=== PATIENT | female | born 1930 | race Caucasian/White ===

== ENCOUNTER 2017-09-02 12:05 | Inpatient (IN) ==
--- NOTE | 2017-09-02 12:24 | Emergency Department Note ---
ED Disposition Clinical Impression: Blood loss anemia Urinary tract infection Qualifiers: Urinary tract infection type: site unspecified Hematuria presence: without hematuria Qualified Code(s): N39.0 - Urinary tract infection, site not specified Disposition: Still a Patient Condition on Discharge: Serious - Critical Care Critical Care Time: No Attestation: On , the high probability of a clinically significant, sudden or life threatening deterioration of the following system(s) required my full and direct attention, intervention and personal management. The time I documented below is in addition to time spent performing reported procedures but includes the following listed in this critical care notation. Medical Decision Making - Shaun Inquiry Pt receiving controlled substance: No Vital Signs: 09/02/17 12:10 09/02/17 12:39 09/02/17 13:01 Temperature 99.3 F Temperature Source Oral Pulse Rate [Right Brachial] 89 72 70 Respiratory Rate 20 18 18 Blood Pressure [Right Arm] 115/67 105/58 108/45 Blood Pressure Mean [Right Arm] 83 73 66 Blood Pressure Source [Right Arm] Automatic Cuff Automatic Cuff Automatic Cuff Blood Pressure Position [Right Arm] Supine Sitting Supine 02 Sat by Pulse Oximetry 97 99 99 Oxygen Delivery Method Nasal Cannula Nasal Cannula Nasal Cannula Oxygen Flow Rate (LPM) 3 - Lab Data Lab Results 09/02/17 12:25: WBC 15.9 H, RBC 3.03 L, Hgb 6.5 L*, Hct 24.5 L, MCV 80.7 L, MCH 21.5 L, MCHC 26.6 L, RDW 16.8, Plt Count 293, MPV 10.0, Neut % (Auto) 87.3 H, Lymph % (Auto) 7.5 L, [place] % (Auto) 5.0, Eos % (Auto) 0.0 L, Baso % (Auto) 0.2, Neut # (Auto) 13.8 H, Lymph # (Auto) 1.2, [place] # (Auto) 0.8, Eos # (Auto) 0.0, Baso # (Auto) 0.0, Total Counted 100, Neutrophils % (Manual) 93 H, Lymphocytes % (Manual) 4 L, Monocytes % (Manual) 3, Platelet Estimate Normal, Hypochromasia 2+, Stomatocytes 1+ 09/02/17 12:25: Sodium 136, Potassium 5.4 H, Chloride 101, Carbon Dioxide 29, Anion Gap 11.4, BUN 30 H, Creatinine 1.81 H, Estimated Creat Clear 31, Estimated GFR 27 L, Est GFR ( Amer) 32 L, Glucose 155 H, Calcium 7.9 L, Total Bilirubin 1.4 H, AST 80 H, ALT 60, Alkaline Phosphatase 258 H, Total Creatine Kinase 70, CK-MB (CK-2) 0.8, CK-MB (CK-2) Rel Index 1.1, Troponin I < 0.02, Total Protein 6.1 L, Albumin 2.3 L, Globulin 3.8 H, Albumin/Globulin Ratio 0.6 L 09/02/17 12:30: TSH 0.90, Free T4 Index 2.3 L, Thyroxine (T4) 6.1, T3 Uptake 37 09/02/17 13:15: Urine Color Yellow, Urine Appearance Sl cloudy, Urine pH 5.5, Ur Specific [place] <= 1.005, Urine Protein Negative, Urine Glucose (UA) Negative, Urine Ketones Negative, Urine Blood Negative, Urine Nitrate Positive, Urine Bilirubin Negative, Urine Urobilinogen 0.2, Ur Leukocyte Esterase 1+ A Result diagrams: 09/02/17 12:25 09/02/17 12:25 Orders (Tests/Meds): ORDERS Category Date Time Status XR chest portable Stat Exams 09/02/17 12:14 Taken Lactic Acid Stat Lab 09/02/17 12:38 Ordered Urinalysis-Acute [Urinalysis and Microscopic] Stat Lab 09/02/17 13:15 Results Urine Culture Stat Micro 09/02/17 13:15 Received ECG Request by /Lynette Stat Y 09/02/17 12:14 Ordered - Radiology Data #1 Image(s): Chest Image Reviewed: Yes I reviewed the patient's radiology image cardiomegaly - ECG Data Tracing #1 EKG interpreted by David Jeffries MD: Rhythm: Electronic atrial pacemaker Rate: 70 [place]: normal Ectopy: none Conduction: normal ST Segment Changes: Nonspecific T Wave Changes: none Q Waves: none No evidence of acute ischemia or injury - Physician Consults Physician Consulted: Laly Time: 13:06 Reason -: Admission Comment/Response: Agrees to admit the patient to the hospital. We discussed the patient's clinical information, including history, exam, laboratory and radiology results and ED course. Per hospital procedure, I will write temporary bridge inpatient orders on the patient. Specific orders requested by the admitting physician: Transfuse packed red cells Medical Decision Narrative: 1242: [facility] records reviewed. Hemoglobin 7.0 on 08/26/17. 7.1 on . 7.9 on 07/09/17. 10.6 on 06/12/17. General Adult HPI - General Chief complaint: Weakness Stated complaint: WEAKNESS AND LOW HGB Time Seen by Provider: 09/02/17 12:24 Mode of Arrival: EMS Limitations: No Limitations Description of Symptoms (Recalled from ER Triage Doc. by RN): C/O WEAKNESS AND LOW HGB PER [facility] STA[facility]. PATIENT STATES SHE IS UNABLE TO HOLD HER HEAD UP. WEAKNESS, BODY ACHES, STATES HE HAD LEFT SIDED CHEST PAIN AT 3 AM THIS AM BUT NO LONGER HAVING THAT PAIN. ALSO C/O SOB - History of Present Illness HPI narrative: Brought in by ambulance from nursing. Generalized weakness for 2 days. Dates could not even hold it up. Dyspnea. Patient states that she had some left shoulder pain earlier when they would prop her up in a certain way, but that is gone. She also had some burning abdominal pain which resolved. There is a report from the assisted that the patient recently refused a transfusion for anemia for a hemoglobin of 7. The patient's daughter is here and she states that the patient was here in the emergency room a few weeks ago and was having blood loss at that time, but did not meet criteria for transfusion then. She says she was called by the assisted yesterday and was told the patient was very weak, but there are no mention of a low blood count or need for transfusion. Review of records shows that she was seen her on 07/09/17 in the emergency department. She was having rectal bleeding at that time. She had a CT scan of her abdomen and pelvis which showed extensive diverticulosis without diverticulitis, cholelithiasis and a diaphragmatic hernia. Hemoglobin 9.2 and stool occult blood was positive. Daughter thinks that she received iron transfusions after return to the assisted at that time. Daughter states Dr. Ruffin takes care of the patient when she is admitted. - Related Data Home Medications Medication Instructions Recorded Confirmed acetaminophen 500 mg capsule 500 mg PO Q6H PRN 03/19/17 09/02/17 aspirin 81 mg tablet,delayed 81 mg PO ONCE 03/19/17 09/02/17 release bisoprolol fumarate 5 mg tablet 5 mg PO DAILY 10 Days #10 03/19/17 09/02/17 cholecalciferol (vitamin D3) 1,000 1,000 unit PO ONCE 03/19/17 09/02/17 unit capsule fluticasone 50 mcg/actuation nasal 1 spray INTRANASAL DAILY 30 Days 03/19/17 spray,suspension #16 furosemide 20 mg tablet 20 mg PO DAILY 10 Days #4 03/19/17 09/02/17 insulin aspart U-100 100 unit/mL 1 unit SUB-Q DAILY 8 Days #3 03/19/17 09/02/17 subcutaneous pen insulin detemir (U-100) 100 12 unit SUB-Q DAILY 10 Days #6 03/19/17 09/02/17 unit/mL (3 mL) subcutaneous pen levothyroxine 50 mcg tablet 50 mcg PO DAILY 10 Days #10 03/19/17 09/02/17 menthol 0.44 %-zinc oxide 20.6 % 1 applic TOPICAL BID 03/19/17 09/02/17 topical ointment metformin 1,000 mg tablet 1,000 mg PO BID 10 Days #20 03/19/17 09/02/17 omeprazole 20 mg capsule,delayed 20 mg PO DAILY 10 Days #10 03/19/17 09/02/17 release pregabalin 75 mg capsule 75 mg PO DAILY 10 Days #20 03/19/17 09/02/17 sennosides 25 mg tablet 25 mg PO QHS 03/19/17 09/02/17 sitagliptin 50 mg tablet 50 mg PO DAILY 10 Days #10 03/19/17 09/02/17 spironolactone 25 mg tablet 25 mg PO DAILY 10 Days #10 03/19/17 09/02/17 Bisacodyl [Bisacodyl 10mg Supp] 10 mg RC DAILYP PRN 09/02/17 09/02/17 Loratadine [Claritin 10mg Tablet] 10 mg PO DAILY 09/02/17 09/02/17 Menthol/Zinc Oxide [Risamine 113 gm TP Q8 PRN 09/02/17 09/02/17 Ointment] Polyethylene Glycol 3350 [Miralax 17 gm PO DAILY 09/02/17 09/02/17 17gm Packet] Allergies Allergy/AdvReac Type Severity Reaction Status Date / Time meperidine [MEPERIDINE] Allergy Mild Verified 03/19/17 11:03 morphine [MORPHINE] Allergy Mild Verified 03/19/17 11:03 promethazine [PROMETHAZINE] Allergy Mild Verified 03/19/17 11:03 [facility] History I have reviewed the patient's past medical history: Yes Medical History: Reports:: Anxiety, Congestive Heart Failure, Cerebrovascular Accident, Diabetes Mellitus Type 2, Hyperlipidemia, Hypertension, Internal Pacemaker Denies:: Diabetes Mellitus Type 1 Other Medical History: Reports: Cataracts, Hypothyroidism Other Surgeries: Yes: Colonoscopy, Hysterectomy-Partial, Pacemaker Amputation: No Comment: EGD, kidney - Social History Smoking Status: Never smoker Alcohol Intake: never Substance Use Type: denies use - Psychiatric History Expresses thoughts of harming self/others: None Suicide Plan Description: No Plan Pschychiatric History:: Reports:: Anxiety Family Hx:: Hypertension Comment: TB ROS Obtained: Yes All systems reviewed & no additional complaints - Constitutional Constitutional: Reports fatigue, Reports poor appetite, Reports lethargy, Reports weakness - Cardiovascular Cardiovascular: Reports chest pain - Respiratory Respiratory: No cough, Yes dyspnea - Gastrointestinal Gastrointestingal: Reports: abdominal pain. Denies: diarrhea, vomiting Physical Exam - General General appearance: alert, in no apparent distress - Head Head exam: atraumatic, normocephalic, normal inspection - Eye Eye exam: Present: normal appearance, PERRL, EOMI - ENT ENT exam: Present: normal exam, normal oropharynx, mucous membranes moist, TM's normal bilaterally, normal external ear exam - Neck Neck exam: Present: normal inspection, full ROM, trachea midline. Absent: meningismus, lymphadenopathy - Chest Chest inspection: Present: normal inspection, symmetric chest wall rise. Absent : tenderness - Respiratory Respiratory exam: Present: normal lung sounds bilaterally. Absent: respiratory distress - Cardiovascular Cardiovascular exam: Present: regular rate, normal rhythm. Absent: JVD - Abdominal Exam Abdominal exam: Present: soft, normal bowel sounds. Absent: distention, tenderness, guarding - Extremities Exam Extremities exam: Present: normal inspection, full ROM, normal capillary refill. Absent: calf tenderness - Neurological Exam Neurological exam: Present: alert, oriented X3 - Psychiatric Psychiatric exam: Present: normal affect, normal mood - Skin Skin exam: Present: warm, dry, intact, pallor
[2017-09-02 12:41] LABS: Basophils % 0.2 % (0.1-2.0); Hematocrit 24.5 % (37.0-47.0); Lymphocytes # 1.2 K/mm3 (0.7-4.5); Lymphocytes % 7.5 K/mm3 (10-50); Mean Corpuscular HGB Conc 26.6 g/dL (31.8-35.4); Mean Corpuscular Hemoglobin 21.5 pg (27.0-31.2); Mean Corpuscular Volume 80.7 fl (81-99); Monocytes # 0.8 K/mm3 (0.1-1.0); Neutrophils # 13.8 K/mm3 (1.8-7.8); Neutrophils % 87.3 % (37.0-80.0); Platelet Count 293 K/mm3 (142-424); Red Blood Count 3.03 M/mm3 (4.20-5.40); Red Cell Distribution Width 16.8 % (11.5-17.5); White Blood Count 15.9 K/mm3 (4.8-10.8)
[2017-09-02 12:43] LABS: Hemoglobin 6.5 g/dL (12.2-16.2)
[2017-09-02 13:03] LABS: Alanine Aminotransferase 60 U/L (12-78); Albumin Level 2.3 gm/dL (3.4-5.0); Albumin/Globulin Ratio 0.6 (1.1-1.8); Alkaline Phosphatase 258 U/L (46-116); Anion Gap 11.4 mEq/L (5-15); Aspartate Amino Transferase 80 U/L (15-37); Bilirubin,Total 1.4 mg/dL (0.2-1.0); Blood Urea Nitrogen 30 mg/dL (7-18); Calcium 7.9 mg/dL (8.5-10.1); Carbon Dioxide 29 mmol/L (21.0-32.0); Chloride 101 mmol/L (98-107); Creatine Kinase 70 U/L (26-192); Globulin 3.8 gm/dl (1.3-3.2); Glucose 155 mg/dL (74-106); Potassium 5.4 mmoL/L (3.5-5.1); Sodium 136 mmol/L (136-145); Total Protein,Serum 6.1 gm/dL (6.4-8.2)
[2017-09-02 13:09] LABS: Free Thyroxine Index 2.3 ug/dL (5.93-13.13); T4 (Thyroxine) 6.1 ug/dl (4.7-13.3); Thyroid Stimulating Hormone 0.9 uIU/ml (0.358-3.740)
[2017-09-02 13:12] LABS: Lymphocytes % 4 % (10-50); Monocytes % 3 % (2-9); Neutrophils % 93 % (42-76); Total Cells Counted 100
[2017-09-02 13:13] LABS: Hypochromasia 2+
[2017-09-02 13:14] LABS: Stomatocytes 1+
[2017-09-02 13:27] LABS: Appearance,Urine SL CLOUDY (Clear); Bilirubin,Urine Negative (Negative); Blood, Urine Negative (Negative); Color,Urine YELLOW (Yellow); Glucose,Urine (UA) Negative (Negative); Ketones,Urine Negative (Negative); Leukocyte Esterase,Urine 1+ (Negative); Microscopic, Urine URINE MICROSCOPIC (MICROSCOPIC); PH,Urine 5.5 (5.0-8.5); Protein,Urine Negative (Negative); Specific Gravity, Urine <= 1.005 (1.005-1.030); Urobilinogen,Urine 0.2 EU/dl (0.2)
[2017-09-02 13:42] LABS: Bacteria,Urine 3+ /lpf; RBC,Urine Occasional #/hpf (0-3)
[2017-09-02 22:53] LABS: Hematocrit 33.9 % (37.0-47.0)
[2017-09-03 07:33] LABS: Basophils % 0.2 % (0.1-2.0); Eosinophils % 0.4 % (0.1-12.0); Hematocrit 32.7 % (37.0-47.0); Hemoglobin 9.5 g/dL (12.2-16.2); Lymphocytes # 0.7 K/mm3 (0.7-4.5); Lymphocytes % 6.6 K/mm3 (10-50); Mean Corpuscular HGB Conc 29.2 g/dL (31.8-35.4); Mean Corpuscular Volume 82.3 fl (81-99); Mean Platelet Volume 9.6 fl (7.4-10.4); Monocytes # 0.5 K/mm3 (0.1-1.0); Monocytes % 4.5 % (1.7-9.3); Neutrophils # 9.2 K/mm3 (1.8-7.8); Neutrophils % 88.4 % (37.0-80.0); Platelet Count 253 K/mm3 (142-424); Red Blood Count 3.97 M/mm3 (4.20-5.40); Red Cell Distribution Width 16.2 % (11.5-17.5); White Blood Count 10.4 K/mm3 (4.8-10.8)
--- NOTE | 2017-09-03 07:35 | Pharmacy Consult Notes ---
[facility] Pharmacy VTE Monitoring - Patient Demographics Admission date: 09/02/17 Report Date: 09/03/17 Time: 07:35 Allergies/Adverse Reactions: Patient Allergies meperidine [MEPERIDINE] Allergy (Mild, Verified 03/19/17 11:03) morphine [MORPHINE] Allergy (Mild, Verified 03/19/17 11:03) promethazine [PROMETHAZINE] Allergy (Mild, Verified 03/19/17 11:03) Height: 1.6 m Weight: 85.757 kg Patient Problems: Current Active Problems Blood loss anemia (Acute) Urinary tract infection (Acute) - VTE Risk Labs: VTE Related Lab Results Hgb 10.0 g/dL (12.2-16.2) L D 09/02/17 21:30 Hct 33.9 % (37.0-47.0) L 09/02/17 21:30 Plt Count 293 K/mm3 (142-424) 09/02/17 12:25 BUN 30 mg/dL (7-18) H 09/02/17 12:25 Creatinine 1.81 mg/dL (0.55-1.02) H 09/02/17 12:25 Estimated Creat Clear 31 mL/min (0-300) 09/02/17 12:25 VTE Score: 6 VTE Risk Level: Moderate Risk - Prophylaxis VTE Prophylaxis Ordered?: Yes Types of VTE Prophylaxis: TEDS Knee High Location of Applied Device: Bilateral Lower Extremeties - VTE Diagnosis Confirmed Treatment or plan recommended: Continue Current Treatment
[2017-09-03 07:42] LABS: Anion Gap 7.9 mEq/L (5-15); Calcium 7.8 mg/dL (8.5-10.1); Potassium 4.9 mmoL/L (3.5-5.1)
[2017-09-03 07:46] VITALS: BP 136/82
--- NOTE | 2017-09-03 08:24 | H&P/Discharge Summary ---
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 She maintains a DNR status at the fci, and essentially is monitored for blood counts and occasionally gets transfusion for palliative/comfort care measures. Over the past couple days she has been increasingly dyspneic, increasingly afflicted with fatigue, blood counts revealed significantly low hemoglobin and she was brought to the emergency department, where she was admitted for overnight blood transfusion. [facility] History I have reviewed the patient's past medical history: Yes Medical History: Reports:: Anxiety, Congestive Heart Failure, Cerebrovascular Accident, Diabetes Mellitus Type 2, Hyperlipidemia, Hypertension, Internal Pacemaker Denies:: Cancer, Diabetes Mellitus Type 1, MRSA Other Medical History: Reports: Cataracts, Hypothyroidism Laterality Cases: Bilateral: Cataract Other Surgeries: Yes: Colonoscopy, Hysterectomy-Total, Hysterectomy-Partial, Pacemaker, Other (FRACTURED RIGHT LEG SURGERY) Amputation: No Fractures: Yes - *Social History Educational Level: Completed GED/General Educational Development Smoking Status: Never smoker Alcohol Intake: never Substance Use Type: denies use Occupational Status: retired, disabled Housing: fci - Psychiatric History Expresses thoughts of harming self/others: None Suicide Plan Description: No Plan Pschychiatric History:: Reports:: Anxiety *Family Hx:: Anemia, Asthma, Cancer, Coronary Artery Disease, Diabetes, Heart Attack, Hyperlipidemia, Hypertension, Stroke, Thyroid Disorder, Tuberculosis Review of Systems - Review of Systems Review of systems:: pertinent systems reviewed and negative unless documented below - *Neurologic Reports weakness Exam Vital signs and Labs for Last 24 Hours: Temp Pulse Resp BP Pulse Ox 98.4 F 78 20 136/82 98 09/03/17 07:44 09/03/17 07:44 09/03/17 07:44 09/03/17 07:44 09/03/17 07:44 Laboratory Results - last 24 hr 09/02/17 12:25: WBC 15.9 H, RBC 3.03 L, Hgb 6.5 L*, Hct 24.5 L, MCV 80.7 L, MCH 21.5 L, MCHC 26.6 L, RDW 16.8, Plt Count 293, MPV 10.0, Neut % (Auto) 87.3 H, Lymph % (Auto) 7.5 L, [place] % (Auto) 5.0, Eos % (Auto) 0.0 L, Baso % (Auto) 0.2, Neut # (Auto) 13.8 H, Lymph # (Auto) 1.2, [place] # (Auto) 0.8, Eos # (Auto) 0.0, Baso # (Auto) 0.0, Total Counted 100, Neutrophils % (Manual) 93 H, Lymphocytes % (Manual) 4 L, Monocytes % (Manual) 3, Platelet Estimate Normal, Hypochromasia 2+, Stomatocytes 1+ 09/02/17 12:25: Sodium 136, Potassium 5.4 H, Chloride 101, Carbon Dioxide 29, Anion Gap 11.4, BUN 30 H, Creatinine 1.81 H, Estimated Creat Clear 31, Estimated GFR 27 L, Est GFR ( Amer) 32 L, Glucose 155 H, Calcium 7.9 L, Total Bilirubin 1.4 H, AST 80 H, ALT 60, Alkaline Phosphatase 258 H, Total Creatine Kinase 70, CK-MB (CK-2) 0.8, CK-MB (CK-2) Rel Index 1.1, Troponin I < 0.02, Total Protein 6.1 L, Albumin 2.3 L, Globulin 3.8 H, Albumin/Globulin Ratio 0.6 L 09/02/17 12:30: TSH 0.90, Free T4 Index 2.3 L, Thyroxine (T4) 6.1, T3 Uptake 37 09/02/17 13:15: Urine Color Yellow, Urine Appearance Sl cloudy, Urine pH 5.5, Ur Specific [place] <= 1.005, Urine Protein Negative, Urine Glucose (UA) Negative, Urine Ketones Negative, Urine Blood Negative, Urine Nitrate Positive, Urine Bilirubin Negative, Urine Urobilinogen 0.2, Ur Leukocyte Esterase 1+ A, Urine RBC Occasional, Urine WBC 5-10, Ur Squamous Epith Cells 3-5, Urine Bacteria 3+ 09/02/17 13:35: Lactic Acid 4.7 H 09/02/17 13:35: Blood Type A Positive, Antibody Screen Negative, Crossmatch ([facility]G ) See Detail 09/02/17 17:46: Lactic Acid Fup @ 4Hr 3.2 H 09/02/17 19:03: POC Glucose 125 H 09/02/17 19:50: Lactic Acid Fup @ 2Hr 2.7 H 09/02/17 21:30: Hgb 10.0 L D, Hct 33.9 L 09/03/17 06:31: POC Glucose 159 H 09/03/17 06:52: WBC 10.4 D, RBC 3.97 L D, Hgb 9.5 L, Hct 32.7 L, MCV 82.3, MCH 24.0 L, MCHC 29.2 L, RDW 16.2, Plt Count 253, MPV 9.6, Neut % (Auto) 88.4 H, Lymph % (Auto) 6.6 L, [place] % (Auto) 4.5, Eos % (Auto) 0.4, Baso % (Auto) 0.2, Neut # (Auto) 9.2 H, Lymph # (Auto) 0.7, [place] # (Auto) 0.5, Eos # (Auto) 0.0, Baso # (Auto) 0.0 09/03/17 06:52: Sodium 136, Potassium 4.9, Chloride 101, Carbon Dioxide 32, Anion Gap 7.9, BUN 25 H, Creatinine 1.53 H, Estimated Creat Clear 36, Estimated GFR 32 L, Est GFR ( Amer) 39 L D, Glucose 156 H, Calcium 7.8 L I & O for Last 24 hours: Intake & Output 08/31/17 09/01/17 09/02/17 09/03/17 11:59 11:59 11:59 11:59 Intake Total 97 / 97 Output Total 1275 / 1275 Balance -1178 / -1178 Weight 189 lb 1 oz Microbiology Reports for the Last 24 Hours: Microbiology 09/02/17 13:15 Urine,Catheterized Urine Culture - Preliminary Gram Negative Rods Narrative: Patient is pleasant, talkative, alert and oriented 2. Little fuzzy about the date. She appears much better in regards to physical appearance and color than she did yesterday. Her only complaint today is that "I like this catheter out." Pulse rate regular, heart rate regular but morbid obesity limits her exam findings. Abdomen is soft and nontender Hospital Course Hospital Course: Patient was admitted, given 2 units of packed cells, this improved her hemoglobin to 9.5 g. She feels much better. She will be discharged back to her [facility] to resume her regular care. Results Labs on day of discharge: Labs from last 24 hours 09/03/17 09/03/17 09/03/17 06:52 06:52 06:31 WBC 10.4 D RBC 3.97 L D Hgb 9.5 L Hct 32.7 L MCV 82.3 MCH 24.0 L MCHC 29.2 L RDW 16.2 Plt Count 253 MPV 9.6 Neut % (Auto) 88.4 H Lymph % (Auto) 6.6 L [place] % (Auto) 4.5 Eos % (Auto) 0.4 Baso % (Auto) 0.2 Neut # (Auto) 9.2 H Lymph # (Auto) 0.7 [place] # (Auto) 0.5 Eos # (Auto) 0.0 Baso # (Auto) 0.0 Total Counted Neutrophils % (Manual) Lymphocytes % (Manual) Monocytes % (Manual) Platelet Estimate Hypochromasia Stomatocytes Sodium 136 Potassium 4.9 Chloride 101 Carbon Dioxide 32 Anion Gap 7.9 BUN 25 H Creatinine 1.53 H Estimated Creat Clear 36 Estimated GFR 32 L Est GFR ( Amer) 39 L D Glucose 156 H POC Glucose 159 H Lactic Acid Lactic Acid Fup @ 2Hr Lactic Acid Fup @ 4Hr Calcium 7.8 L Total Bilirubin AST ALT Alkaline Phosphatase Total Creatine Kinase CK-MB (CK-2) CK-MB (CK-2) Rel Index Troponin I Total Protein Albumin Globulin Albumin/Globulin Ratio TSH Free T4 Index Thyroxine (T4) T3 Uptake Urine Color Urine Appearance Urine pH Ur Specific [place] Urine Protein Urine Glucose (UA) Urine Ketones Urine Blood Urine Nitrate Urine Bilirubin Urine Urobilinogen Ur Leukocyte Esterase Urine RBC Urine WBC Ur Squamous Epith Cells Urine Bacteria Blood Type Antibody Screen Crossmatch (AHG) 09/02/17 09/02/17 09/02/17 21:30 19:50 19:03 WBC RBC Hgb 10.0 L D Hct 33.9 L MCV MCH MCHC RDW Plt Count MPV Neut % (Auto) Lymph % (Auto) [place] % (Auto) Eos % (Auto) Baso % (Auto) Neut # (Auto) Lymph # (Auto) [place] # (Auto) Eos # (Auto) Baso # (Auto) Total Counted Neutrophils % (Manual) Lymphocytes % (Manual) Monocytes % (Manual) Platelet Estimate Hypochromasia Stomatocytes Sodium Potassium Chloride Carbon Dioxide Anion Gap BUN Creatinine Estimated Creat Clear Estimated GFR Est GFR ( Amer) Glucose POC Glucose 125 H Lactic Acid Lactic Acid Fup @ 2Hr 2.7 H Lactic Acid Fup @ 4Hr Calcium Total Bilirubin AST ALT Alkaline Phosphatase Total Creatine Kinase CK-MB (CK-2) CK-MB (CK-2) Rel Index Troponin I Total Protein Albumin Globulin Albumin/Globulin Ratio TSH Free T4 Index Thyroxine (T4) T3 Uptake Urine Color Urine Appearance Urine pH Ur Specific [place] Urine Protein Urine Glucose (UA) Urine Ketones Urine Blood Urine Nitrate Urine Bilirubin Urine Urobilinogen Ur Leukocyte Esterase Urine RBC Urine WBC Ur Squamous Epith Cells Urine Bacteria Blood Type Antibody Screen Crossmatch ([facility]) 09/02/17 09/02/17 09/02/17 17:46 13:35 13:35 WBC RBC Hgb Hct MCV MCH MCHC RDW Plt Count MPV Neut % (Auto) Lymph % (Auto) [place] % (Auto) Eos % (Auto) Baso % (Auto) Neut # (Auto) Lymph # (Auto) [place] # (Auto) Eos # (Auto) Baso # (Auto) Total Counted Neutrophils % (Manual) Lymphocytes % (Manual) Monocytes % (Manual) Platelet Estimate Hypochromasia Stomatocytes Sodium Potassium Chloride Carbon Dioxide Anion Gap BUN Creatinine Estimated Creat Clear Estimated GFR Est GFR ( Amer) Glucose POC Glucose Lactic Acid 4.7 H Lactic Acid Fup @ 2Hr Lactic Acid Fup @ 4Hr 3.2 H Calcium Total Bilirubin AST ALT Alkaline Phosphatase Total Creatine Kinase CK-MB (CK-2) CK-MB (CK-2) Rel Index Troponin I Total Protein Albumin Globulin Albumin/Globulin Ratio TSH Free T4 Index Thyroxine (T4) T3 Uptake Urine Color Urine Appearance Urine pH Ur Specific [place] Urine Protein Urine Glucose (UA) Urine Ketones Urine Blood Urine Nitrate Urine Bilirubin Urine Urobilinogen Ur Leukocyte Esterase Urine RBC Urine WBC Ur Squamous Epith Cells Urine Bacteria Blood Type A Positive Antibody Screen Negative Crossmatch ([facility]) See Detail 09/02/17 09/02/17 09/02/17 13:15 12:30 12:25 WBC RBC Hgb Hct MCV MCH MCHC RDW Plt Count MPV Neut % (Auto) Lymph % (Auto) [place] % (Auto) Eos % (Auto) Baso % (Auto) Neut # (Auto) Lymph # (Auto) [place] # (Auto) Eos # (Auto) Baso # (Auto) Total Counted Neutrophils % (Manual) Lymphocytes % (Manual) Monocytes % (Manual) Platelet Estimate Hypochromasia Stomatocytes Sodium 136 Potassium 5.4 H Chloride 101 Carbon Dioxide 29 Anion Gap 11.4 BUN 30 H Creatinine 1.81 H Estimated Creat Clear 31 Estimated GFR 27 L Est GFR ( Amer) 32 L Glucose 155 H POC Glucose Lactic Acid Lactic Acid Fup @ 2Hr Lactic Acid Fup @ 4Hr Calcium 7.9 L Total Bilirubin 1.4 H AST 80 H ALT 60 Alkaline Phosphatase 258 H Total Creatine Kinase 70 CK-MB (CK-2) 0.8 CK-MB (CK-2) Rel Index 1.1 Troponin I < 0.02 Total Protein 6.1 L Albumin 2.3 L Globulin 3.8 H Albumin/Globulin Ratio 0.6 L TSH 0.90 Free T4 Index 2.3 L Thyroxine (T4) 6.1 T3 Uptake 37 Urine Color Yellow Urine Appearance Sl cloudy Urine pH 5.5 Ur Specific [place] <= 1.005 Urine Protein Negative Urine Glucose (UA) Negative Urine Ketones Negative Urine Blood Negative Urine Nitrate Positive Urine Bilirubin Negative Urine Urobilinogen 0.2 Ur Leukocyte Esterase 1+ A Urine RBC Occasional Urine WBC 5-10 Ur Squamous Epith Cells 3-5 Urine Bacteria 3+ Blood Type Antibody Screen Crossmatch ([facility]) 09/02/17 12:25 WBC 15.9 H RBC 3.03 L Hgb 6.5 L* Hct 24.5 L MCV 80.7 L MCH 21.5 L MCHC 26.6 L RDW 16.8 Plt Count 293 MPV 10.0 Neut % (Auto) 87.3 H Lymph % (Auto) 7.5 L [place] % (Auto) 5.0 Eos % (Auto) 0.0 L Baso % (Auto) 0.2 Neut # (Auto) 13.8 H Lymph # (Auto) 1.2 [place] # (Auto) 0.8 Eos # (Auto) 0.0 Baso # (Auto) 0.0 Total Counted 100 Neutrophils % (Manual) 93 H Lymphocytes % (Manual) 4 L Monocytes % (Manual) 3 Platelet Estimate Normal Hypochromasia 2+ Stomatocytes 1+ Sodium Potassium Chloride Carbon Dioxide Anion Gap BUN Creatinine Estimated Creat Clear Estimated GFR Est GFR ( Amer) Glucose POC Glucose Lactic Acid Lactic Acid Fup @ 2Hr Lactic Acid Fup @ 4Hr Calcium Total Bilirubin AST ALT Alkaline Phosphatase Total Creatine Kinase CK-MB (CK-2) CK-MB (CK-2) Rel Index Troponin I Total Protein Albumin Globulin Albumin/Globulin Ratio TSH Free T4 Index Thyroxine (T4) T3 Uptake Urine Color Urine Appearance Urine pH Ur Specific [place] Urine Protein Urine Glucose (UA) Urine Ketones Urine Blood Urine Nitrate Urine Bilirubin Urine Urobilinogen Ur Leukocyte Esterase Urine RBC Urine WBC Ur Squamous Epith Cells Urine Bacteria Blood Type Antibody Screen Crossmatch ([facility]) Preliminary micro results at discharge 09/02/17 13:15 Urine Culture - Preliminary Urine,Catheterized Gram Negative Rods DS: Diagnosis - Discharge Diagnosis (1) Blood loss anemia Status: Acute Discharge Medications Discharge Medications: Home Medications Medication Instructions Recorded Confirmed Type acetaminophen 500 mg capsule 500 mg PO Q6H PRN 03/19/17 09/02/17 History aspirin 81 mg tablet,delayed 81 mg PO DAILY 03/19/17 09/02/17 History release bisoprolol fumarate 5 mg tablet 5 mg PO DAILY 10 Days #10 03/19/17 09/02/17 History cholecalciferol (vitamin D3) 1,000 1,000 unit PO DAILY 03/19/17 09/02/17 History unit capsule fluticasone 50 mcg/actuation nasal 1 spray INTRANASAL BID 30 Days #16 03/19/17 09/02/17 History spray,suspension furosemide 20 mg tablet 20 mg PO MOWEFR 10 Days #4 03/19/17 09/02/17 History insulin aspart U-100 100 unit/mL 0 unit SUB-Q DAILY 8 Days #3 03/19/17 History subcutaneous pen insulin detemir (U-100) 100 12 unit SUB-Q DAILY 10 Days #6 03/19/17 09/02/17 History unit/mL (3 mL) subcutaneous pen levothyroxine 50 mcg tablet 50 mcg PO DAILY 10 Days #10 03/19/17 09/02/17 History metformin 1,000 mg tablet 1,000 mg PO BID 10 Days #20 03/19/17 09/02/17 History omeprazole 20 mg capsule,delayed 20 mg PO HS 10 Days #10 03/19/17 09/02/17 History release pregabalin 75 mg capsule 75 mg PO BID 10 Days #20 03/19/17 09/02/17 History sennosides 25 mg tablet 2 tab PO DAILYP PRN 03/19/17 09/02/17 History sitagliptin 50 mg tablet 50 mg PO DAILY 10 Days #10 03/19/17 09/02/17 History spironolactone 25 mg tablet 25 mg PO DAILY 10 Days #10 03/19/17 09/02/17 History Bisacodyl [Bisacodyl 10mg Supp] 10 mg RC DAILYP PRN 09/02/17 09/02/17 History Loratadine [Claritin 10mg Tablet] 10 mg PO DAILY 09/02/17 09/02/17 History Menthol/Zinc Oxide [Risamine 113 gm TP Q8HP PRN 09/02/17 09/02/17 History Ointment] Polyethylene Glycol 3350 [Miralax 17 gm PO DAILY 09/02/17 09/02/17 History 17gm Packet]
[2017-09-03 10:40] LABS: Monocytes % 7 % (2-9); Neutrophils % 93 % (42-76); Total Cells Counted 100
[2017-09-03 10:42] LABS: Hypochromasia 2+; Stomatocytes 1+
[2017-09-03 10:43] LABS: Rouleaux 1+
== END 2017-09-03 16:27 ==
LOC: ER 12:05 → 2ND 13:26
PROVIDERS: ADMIT Internal Medicine Adolescent Medicine; ATTEND Internal Medicine Adolescent Medicine

== ENCOUNTER 2018-07-24 10:37 | Observation (INO) ==
--- NOTE | 2018-07-24 10:47 | Emergency Department Note ---
ED Disposition Clinical Impression: Altered mental status Qualifiers: Altered mental status type: delirium Qualified Code(s): R41.0 - Disorientation, unspecified Disposition: Admitted as Observation Condition on Discharge: Good Referrals: Provider,Referral, [Primary Care Provider] - - Critical Care Critical Care Time: No Attestation: On , the high probability of a clinically significant, sudden or life threatening deterioration of the following system(s) required my full and direct attention, intervention and personal management. The time I documented below is in addition to time spent performing reported procedures but includes the following listed in this critical care notation. Medical Decision Making - Shaun Inquiry Pt receiving controlled substance: No Vital Signs: 07/24/18 10:38 07/24/18 11:47 07/24/18 12:36 Temperature 98 F Temperature Source Oral Pulse Rate [Right Apical] 90 70 70 Respiratory Rate 20 Blood Pressure [Right Arm] 124/61 125/71 104/64 L Blood Pressure Mean [Right Arm] 82 89 77 Blood Pressure Source [Right Arm] Automatic Cuff Automatic Cuff Blood Pressure Position [Right Arm] Supine Supine 02 Sat by Pulse Oximetry 99 99 100 Oxygen Delivery Method Nasal Cannula Nasal Cannula Nasal Cannula Oxygen Flow Rate (LPM) 2 2 2 07/24/18 13:06 07/24/18 13:25 07/24/18 13:32 Temperature Temperature Source Pulse Rate [Right Apical] 70 72 78 Respiratory Rate Blood Pressure [Right Arm] 112/73 72/52 L 128/72 Blood Pressure Mean [Right Arm] 86 58 90 Blood Pressure Source [Right Arm] Automatic Cuff Manual Cuff/ Auscultation Automatic Cuff Blood Pressure Position [Right Arm] Supine Sitting Sitting 02 Sat by Pulse Oximetry 99 Oxygen Delivery Method Room Air Oxygen Flow Rate (LPM) 07/24/18 14:13 Temperature Temperature Source Pulse Rate [Right Apical] 72 Respiratory Rate Blood Pressure [Right Arm] 134/65 Blood Pressure Mean [Right Arm] 88 Blood Pressure Source [Right Arm] Automatic Cuff Blood Pressure Position [Right Arm] Supine 02 Sat by Pulse Oximetry 99 Oxygen Delivery Method Nasal Cannula Oxygen Flow Rate (LPM) 2 - Lab Data Lab Results 07/24/18 11:30: Urine Color Yellow, Urine Appearance Clear, Urine pH 6.0, Ur Specific [place] <= 1.005, Urine Protein Negative, Urine Glucose (UA) Negative, Urine Ketones Negative, Urine Blood Negative, Urine Nitrate Negative, Urine Bilirubin Negative, Urine Urobilinogen 0.2, Ur Leukocyte Esterase 2+ A, Urine WBC 3-5, Ur Squamous Epith Cells 3-5, Urine Bacteria Trace 07/24/18 12:00: WBC 6.4, RBC 3.60 L, Hgb 8.6 L, Hct 29.1 L, MCV 80.9 L, MCH 24.0 L, MCHC 29.6 L, RDW 16.1, Plt Count 269, MPV 9.1, Neut % (Auto) 75.2, Lymph % (Auto) 18.0, Rains % (Auto) 5.5, Eos % (Auto) 0.9, Baso % (Auto) 0.3, Neut # (Auto) 4.8, Lymph # (Auto) 1.2, Rains # (Auto) 0.4, Eos # (Auto) 0.1, Baso # (Auto) 0.0 07/24/18 12:00: Sodium 143, Potassium 4.5, Chloride 103, Carbon Dioxide 32, Anion Gap 12.5, BUN 22 H, Creatinine 1.39 H, Estimated Creat Clear 43, Estimated GFR 36 L, Est GFR ( Amer) 43 L, Glucose 52 L, Calcium 8.5, Total Bilirubin 0.3, AST 12 L, ALT 17, Alkaline Phosphatase 69, Total Protein 6.3 L, Albumin 2.7 L, Globulin 3.6 H, Albumin/Globulin Ratio 0.8 L, TSH 4.15 H D 07/24/18 12:00: Lactate 2.7 H Result diagrams: 07/24/18 12:00 07/24/18 12:00 Orders (Tests/Meds): ED MEDICATIONS Generic Name Dose Route Start Last Admin Trade Name Freq PRN Reason Stop Dose Admin Sodium Chloride 1,000 mls @ 50 mls/hr 07/24/18 13:45 07/24/18 13:35 Sod Chlor 0.9% 1000ml Bag IV 08/23/18 13:44 50 mls/hr .Q20H GABRIELLE Administration Discontinued Medications Generic Name Dose Route Start Last Admin Trade Name Freq PRN Reason Stop Dose Admin Dextrose 50 ml 07/24/18 13:15 07/24/18 13:24 Dextrose 50% 50ml Syringe IVP 07/24/18 13:16 50 ml ONCE ONE Administration Sodium Chloride 1,000 mls @ 999 mls/hr 07/24/18 13:45 Sod Chlor 0.9% 1000ml Bag IV 07/24/18 14:45 .Q1H1M [facility] ORDERS Category Date Time Status Blood Culture Stat Micro 07/24/18 12:00 Received Urine Culture Stat Micro 07/24/18 11:30 Received - Radiology Data #1 Image(s): Chest Image Reviewed: Yes I reviewed the patient's radiology image, Yes I have reviewed radiologist's interpretation IMPRESSION...... . No prominent change or definitive acute findings. Less optimal inspiration on today's study Very Large hiatal hernia which contains entire stomach is again seen here at the lower left hemithorax accounting for the density extending up to the left preethi. On final review there may be additional linear atelectasis and scarring scarring just above this is large hiatal hernia, at the left midlung on today's pCXR.. Perhaps additional minimal linear atelectasis at the medial right base as well on today's pCXR. Dictated By: Jefry Alexandre Signed By: <Electronically signed by Jefry Alexandre in [place]> 07/24/18 1307 - CT Data CT Scan: Head Time Received: 11:[address] Reviewed: Yes: I discussed the CT results w/the radiologist Findings Narrative: No acute intracranial process. Chronic white matter changes. Progression of mastoid effusion without bony destruction. - ECG Data Tracing #1 EKG interpreted by David Jeffries MD: Rhythm: sinus Rate: 71 Monitor: Left Ectopy: none Conduction: normal ST Segment Changes: none T Wave Changes: none Q Waves: none Poor R wave progression Low voltage QRS - Physician Consults Physician Consulted: Jesse Time: 14:35 Reason -: Admission Comment/Response: Agrees to admit the patient to the hospital. We discussed the patient's clinical information, including history, exam, laboratory and radiology results and ED course. Per hospital procedure, I will write temporary bridge inpatient orders on the patient. Specific orders requested by the admitting physician: D5 one half normal saline at 75 cc/h. Admit to observation. General Adult HPI - General Chief complaint: Weakness Stated complaint: weakness Time Seen by Provider: 07/24/18 11:09 Mode of Arrival: Ambulatory Limitations: Altered Mental Status Description of Symptoms (Recalled from ER Triage Doc. by RN): PT arrived via EMS from [facility] with c/o left sided weakness, slurred speech and lethargy. Pt daughter states that she acts like this when she has UTI's but she is normally not weak on her left side. - History of Present Illness HPI narrative: Per prison paperwork "send to ER for mental status change, lethargy, decline in transfers, leaning to the left, hallucinations, delusions, slurred speech, lack of appetite, decreased urine output after fluids encouraged, one time only for 1 day" . finished IM Invanz 2 days ago for E. Coli ESBL UTI. History supplemented by daughter. Daughter states that her speech is garbled, she is confused, she is hallucinating. All of this started on , the day that her antibiotic was stopped for UTI. Daughter states that they called her last night and stated they were going to start her on Seroquel. The patient says she is not hurting anywhere, her breathing feels fine. She feels tired. - Related Data Home Medications Medication Instructions Recorded Confirmed acetaminophen 500 mg capsule 500 mg PO Q6H PRN 03/19/17 07/24/18 aspirin 81 mg tablet,delayed 81 mg PO DAILY 03/19/17 07/24/18 release bisoprolol fumarate 5 mg tablet 5 mg PO DAILY 10 Days #10 03/19/17 07/24/18 cholecalciferol (vitamin D3) 1,000 1,000 unit PO DAILY 03/19/17 07/24/18 unit capsule fluticasone propionate 50 1 spray INTRANASAL BID 30 Days #16 03/19/17 07/24/18 mcg/actuation nasal spray,suspension furosemide 20 mg tablet 20 mg PO DAILY 10 Days #4 03/19/17 07/24/18 insulin aspart (U-100) 100 unit/mL 0 unit SUB-Q DAILY 8 Days #3 03/19/17 07/24/18 (3 mL) subcutaneous pen insulin detemir (U-100) 100 12 unit SUB-Q DAILY 10 Days #6 03/19/17 07/24/18 unit/mL (3 mL) subcutaneous pen levothyroxine 50 mcg tablet 50 mcg PO DAILY 10 Days #10 03/19/17 07/24/18 metformin 1,000 mg tablet 1,000 mg PO BID 10 Days #20 03/19/17 07/24/18 omeprazole 20 mg capsule,delayed 20 mg PO HS 10 Days #10 03/19/17 07/24/18 release pregabalin 75 mg capsule 75 mg PO BID 10 Days #20 03/19/17 07/24/18 sennosides 25 mg tablet 2 tab PO DAILYP PRN 03/19/17 07/24/18 sitagliptin 50 mg tablet 50 mg PO DAILY 10 Days #10 03/19/17 07/24/18 spironolactone 25 mg tablet 25 mg PO DAILY 10 Days #10 03/19/17 07/24/18 Bisacodyl [Bisacodyl 10mg Supp] 10 mg RC DAILYP PRN 09/02/17 07/24/18 Loratadine [Claritin 10mg Tablet] 10 mg PO DAILY 09/02/17 07/24/18 Menthol/Zinc Oxide [Risamine 113 gm TP Q8HP PRN 09/02/17 07/24/18 Ointment] Polyethylene Glycol 3350 [Miralax 17 gm PO DAILY 09/02/17 07/24/18 17gm Packet] Quetiapine Fumarate [Seroquel 25mg 25 mg PO TID 07/24/18 07/24/18 tablet] Allergies Allergy/AdvReac Type Severity Reaction Status Date / Time meperidine [MEPERIDINE] Allergy Mild Verified 03/19/17 11:03 morphine [MORPHINE] Allergy Mild Verified 03/19/17 11:03 promethazine [PROMETHAZINE] Allergy Mild Verified 03/19/17 11:03 [facility] History - Hepatitis A Screen Drug use history?: No High risk sexual behaviors?: No History of sexually transmitted infection?: No Currently employed?: No Childcare worker?: No Do you have indoor plumbing?: Yes Do you have electricity?: Yes Attestation statement:: This patient has been screened for Hepatitis A risk factors. I have reviewed the patient's past medical history: Yes Medical History: Reports:: Anxiety, Congestive Heart Failure, Cerebrovascular Accident, Diabetes Mellitus Type 2, Hyperlipidemia, Hypertension, Internal Pacemaker Denies:: Cancer, Diabetes Mellitus Type 1, MRSA Other Medical History: Reports: Cataracts, Hypothyroidism Other Surgeries: Yes: Colonoscopy, Hysterectomy-Total, Hysterectomy-Partial, Pacemaker, Other (FRACTURED RIGHT LEG SURGERY) Amputation: No Fractures: Yes Comment: EGD, kidney - Social History Smoking Status: Never smoker Alcohol Intake: never Substance Use Type: denies use Occupational Status: retired, disabled Housing: prison - Psychiatric History Expresses thoughts of harming self/others: None Suicide Plan Description: No Plan Pschychiatric History:: Reports:: Anxiety Family Hx:: Anemia, Asthma, Cancer, Coronary Artery Disease, Diabetes, Heart Attack, Hyperlipidemia, Hypertension, Stroke, Thyroid Disorder, Tuberculosis Comment: TB ROS Obtained: Yes unobtainable due to mental status Physical Exam - General General appearance: alert, in no apparent distress - Head Head exam: atraumatic, normocephalic - Eye Eye exam: Present: normal appearance, EOMI - ENT ENT exam: Present: mucous membranes moist - Neck Neck exam: Present: normal inspection, trachea midline - Chest Chest inspection: Present: normal inspection, symmetric chest wall rise - Respiratory Respiratory exam: Present: normal lung sounds bilaterally. Absent: respiratory distress - Cardiovascular Cardiovascular exam: Present: regular rate, normal rhythm, normal heart sounds - Abdominal Exam Abdominal exam: Present: soft, normal bowel sounds. Absent: distention, tenderness, guarding, rebound, rigidity - Extremities Exam Extremities exam: Present: other (Support hose on legs) - Neurological Exam Neurological exam: Present: alert, CN II-XII intact, other (Dysarthric.). Absent: motor sensory deficit (Moves all 4 extremities on command with symmetric movement. Sensation appears intact.) - Psychiatric Psychiatric exam: Present: normal affect - Skin Skin exam: Present: warm, dry
[2018-07-24 11:56] LABS: Appearance,Urine CLEAR (Clear); Bilirubin,Urine Negative (Negative); Blood, Urine Negative (Negative); Color,Urine YELLOW (Yellow); Glucose,Urine (UA) Negative (Negative); Ketones,Urine Negative (Negative); Leukocyte Esterase,Urine 2+ (Negative); Microscopic, Urine URINE MICROSCOPIC (MICROSCOPIC); Protein,Urine Negative (Negative); Specific Gravity, Urine <= 1.005 (1.005-1.030); Urobilinogen,Urine 0.2 EU/dl (0.2)
[2018-07-24 12:18] LABS: Bacteria,Urine Trace /lpf
[2018-07-24 12:32] LABS: Basophils % 0.3 % (0.1-2.0); Eosinophils # 0.1 K/mm3 (0.0-0.4); Eosinophils % 0.9 % (0.1-12.0); Hematocrit 29.1 % (37.0-47.0); Hemoglobin 8.6 g/dL (12.2-16.2); Lymphocytes # 1.2 K/mm3 (0.7-4.5); Mean Corpuscular HGB Conc 29.6 g/dL (31.8-35.4); Mean Corpuscular Volume 80.9 fl (81-99); Mean Platelet Volume 9.1 fl (7.4-10.4); Monocytes # 0.4 K/mm3 (0.1-1.0); Monocytes % 5.5 % (1.7-9.3); Neutrophils # 4.8 K/mm3 (1.8-7.8); Neutrophils % 75.2 % (37.0-80.0); Platelet Count 269 K/mm3 (142-424); Red Cell Distribution Width 16.1 % (11.5-17.5); White Blood Count 6.4 K/mm3 (4.8-10.8)
[2018-07-24 12:53] LABS: Albumin Level 2.7 gm/dL (3.4-5.0); Albumin/Globulin Ratio 0.8 (1.1-1.8); Anion Gap 12.5 mEq/L (5-15); Bilirubin,Total 0.3 mg/dL (0.2-1.0); Calcium 8.5 mg/dL (8.5-10.1); Globulin 3.6 gm/dl (1.3-3.2); Potassium 4.5 mmoL/L (3.5-5.1); Thyroid Stimulating Hormone 4.15 uIU/ml (0.358-3.740); Total Protein,Serum 6.3 gm/dL (6.4-8.2)
[2018-07-25 07:45] LABS: Anion Gap 10.2 mEq/L (5-15); Calcium 8.2 mg/dL (8.5-10.1); Potassium 4.2 mmoL/L (3.5-5.1)
[2018-07-25 07:55] LABS: Basophils % 0.4 % (0.1-2.0); Eosinophils # 0.1 K/mm3 (0.0-0.4); Eosinophils % 1.6 % (0.1-12.0); Hematocrit 30.4 % (37.0-47.0); Lymphocytes # 1.1 K/mm3 (0.7-4.5); Lymphocytes % 21.3 % (10-50); Mean Corpuscular HGB Conc 29.4 g/dL (31.8-35.4); Mean Corpuscular Hemoglobin 23.7 pg (27.0-31.2); Mean Corpuscular Volume 80.6 fl (81-99); Mean Platelet Volume 9.4 fl (7.4-10.4); Monocytes # 0.4 K/mm3 (0.1-1.0); Monocytes % 7.4 % (1.7-9.3); Neutrophils # 3.6 K/mm3 (1.8-7.8); Neutrophils % 69.5 % (37.0-80.0); Platelet Count 275 K/mm3 (142-424); Red Blood Count 3.78 M/mm3 (4.20-5.40); Red Cell Distribution Width 15.8 % (11.5-17.5); White Blood Count 5.2 K/mm3 (4.8-10.8)
--- NOTE | 2018-07-25 08:17 | H&P/Discharge Summary ---
General - General Admission date:: 07/24/18 Discharge date: 07/25/18 *Admission Date: 07/24/18 *Chief complaint: Mental status changes *History of present illness: 87-year-old female sent from her care home where she has resided for the last 3+ years with changes in mental status and perceived lethargy. Apparently patient had recently completed a course of intramuscular Invanz for a UTI. Patient tells me this morning she gets frequent UTIs and feels like she is always being treated for 1. Mental status changes had developed which did include some hallucinations. Per the ER note staff had indicated hallucinations have been ongoing for a few days although the patient reports to me this morning they have been going on for several weeks. At some point patient was started on Seroquel for these hallucinations. Nevertheless underwent a work-up in the emergency department with only revealing finding of hypoglycemia which was easily corrected in the ER. Patient was admitted for observation and gentle IV fluid hydration overnight with D5 half-normal saline with potassium chloride. This morning the patient is awake and conversant. She is oriented to person and place. She reports a poor appetite although her breakfast plate is clean of all food that was provided her. She denies any pain [facility] History I have reviewed the patient's past medical history: Yes Medical History: Reports:: Anxiety, Congestive Heart Failure, Cerebrovascular Accident, Diabetes Mellitus Type 2, Hyperlipidemia, Hypertension, Internal Pacemaker Denies:: Cancer, Diabetes Mellitus Type 1, MRSA *Have you ever received a pneumonia vaccine?: Yes *Have you received a flu vaccine this season?: Yes Other Medical History: Reports: Cataracts, Hypothyroidism Other Surgeries: Yes: Colonoscopy, Hysterectomy-Total, Hysterectomy-Partial, Pacemaker, Other (FRACTURED RIGHT LEG SURGERY) Amputation: No Fractures: Yes - *Social History Educational Level: Completed GED/General Educational Development Smoking Status: Never smoker Alcohol Intake: never Substance Use Type: denies use *Occupational Status:: retired, disabled Housing: care home *Travel in the last 8 weeks: None - Psychiatric History Expresses thoughts of harming self/others: None Suicide Plan Description: No Plan Pschychiatric History:: Reports:: Anxiety Family Hx:: Anemia, Asthma, Cancer, Coronary Artery Disease, Diabetes, Heart Attack, Hyperlipidemia, Hypertension, Stroke, Thyroid Disorder, Tuberculosis Review of Systems - Constitutional Denies body ache(s), Denies chills - *Cardiovascular Denies chest pain - *Respiratory Denies chest congestion, Denies cough, Denies shortness of breath - *Gastrointestinal Denies abdominal pain Exam Vital signs and Labs for Last 24 Hours: Temp Pulse Resp BP Pulse Ox 98.4 F 73 18 118/57 L 97 07/25/18 08:00 07/25/18 08:00 07/25/18 08:00 07/25/18 08:00 07/25/18 08:00 Laboratory Results - last 24 hr 07/24/18 11:30: Urine Color Yellow, Urine Appearance Clear, Urine pH 6.0, Ur Specific Butler <= 1.005, Urine Protein Negative, Urine Glucose (UA) Negative, Urine Ketones Negative, Urine Blood Negative, Urine Nitrate Negative, Urine Bilirubin Negative, Urine Urobilinogen 0.2, Ur Leukocyte Esterase 2+ A, Urine WBC 3-5, Ur Squamous Epith Cells 3-5, Urine Bacteria Trace 07/24/18 12:00: WBC 6.4, RBC 3.60 L, Hgb 8.6 L, Hct 29.1 L, MCV 80.9 L, MCH 24.0 L, MCHC 29.6 L, RDW 16.1, Plt Count 269, MPV 9.1, Neut % (Auto) 75.2, Lymph % (Auto) 18.0, Hamlin % (Auto) 5.5, Eos % (Auto) 0.9, Baso % (Auto) 0.3, Neut # (Auto) 4.8, Lymph # (Auto) 1.2, Hamlin # (Auto) 0.4, Eos # (Auto) 0.1, Baso # (Auto) 0.0 07/24/18 12:00: Sodium 143, Potassium 4.5, Chloride 103, Carbon Dioxide 32, Anion Gap 12.5, BUN 22 H, Creatinine 1.39 H, Estimated Creat Clear 43, Estimated GFR 36 L, Est GFR ( Amer) 43 L, Glucose 52 L, Calcium 8.5, Total Bilirubin 0.3, AST 12 L, ALT 17, Alkaline Phosphatase 69, Total Protein 6.3 L, Albumin 2.7 L, Globulin 3.6 H, Albumin/Globulin Ratio 0.8 L, TSH 4.15 H D 07/24/18 12:00: Lactate 2.7 H 07/24/18 16:21: POC Glucose 117 H 07/24/18 16:46: Lactate 2.1 H 07/24/18 19:45: Lactate 2.0 07/24/18 21:11: POC Glucose 85 07/25/18 06:27: POC Glucose 123 H 07/25/18 06:45: WBC 5.2, RBC 3.78 L, Hgb 9.0 L, Hct 30.4 L, MCV 80.6 L, MCH 23.7 L, MCHC 29.4 L, RDW 15.8, Plt Count 275, MPV 9.4, Neut % (Auto) 69.5, Lymph % (Auto) 21.3, Hamlin % (Auto) 7.4, Eos % (Auto) 1.6, Baso % (Auto) 0.4, Neut # (Auto) 3.6, Lymph # (Auto) 1.1, Hamlin # (Auto) 0.4, Eos # (Auto) 0.1, Baso # (Auto) 0.0 07/25/18 06:45: Sodium 142, Potassium 4.2, Chloride 103, Carbon Dioxide 33 H, Anion Gap 10.2, BUN 19 H, Creatinine 1.20 H, Estimated Creat Clear 41, Estimated GFR 42 L, Est GFR ( Amer) 51 L, Glucose 95 D, Calcium 8.2 L I & O for Last 24 hours: Intake & Output 07/22/18 07/23/18 07/24/18 07/25/18 11:59 11:59 11:59 11:59 Intake Total 360 / 360 Output Total 675 / 675 Balance -315 / -315 Weight 210 lb 174 lb 2 oz Narrative: Patient is awake and alert. She is conversant. Speech is appropriate. She denies hallucinations during interview. HEENT exam is grossly normal. Neck has no carotid bruits. Lungs are clear. Heart has a regular rate and rhythm. Abdomen is soft and nontender. Extremities are warm to the touch. She moves all extremities. She has symmetric strength in the upper and lower extremities. Sensation is intact in the upper lower extremities. Gait was not tested Hospital Course Hospital Course: Patient was admitted for observation. She had no recurrent hypoglycemia. No abnormal behaviors were witnessed. No hallucinations occurred. Patient was discharged back to the care home where she resides. Etiology of her mental status changes is unclear based on timing. [facility] has a 3 to 5% rate of causing mental status changes. Patient was placed on Seroquel which could explain the lethargy and fatigue that was witnessed. Further evaluation can occur through the ED provider at the care home. The only change that was made to her medications with discontinuation of the Seroquel Results Labs on day of discharge: Labs from last 24 hours 07/25/18 07/25/18 07/25/18 06:45 06:45 06:27 WBC 5.2 RBC 3.78 L Hgb 9.0 L Hct 30.4 L MCV 80.6 L MCH 23.7 L MCHC 29.4 L RDW 15.8 Plt Count 275 MPV 9.4 Neut % (Auto) 69.5 Lymph % (Auto) 21.3 Hamlin % (Auto) 7.4 Eos % (Auto) 1.6 Baso % (Auto) 0.4 Neut # (Auto) 3.6 Lymph # (Auto) 1.1 Hamlin # (Auto) 0.4 Eos # (Auto) 0.1 Baso # (Auto) 0.0 Sodium 142 Potassium 4.2 Chloride 103 Carbon Dioxide 33 H Anion Gap 10.2 BUN 19 H Creatinine 1.20 H Estimated Creat Clear 41 Estimated GFR 42 L Est GFR ( Amer) 51 L Glucose 95 D POC Glucose 123 H Lactate Calcium 8.2 L Total Bilirubin AST ALT Alkaline Phosphatase Total Protein Albumin Globulin Albumin/Globulin Ratio TSH Urine Color Urine Appearance Urine pH Ur Specific Butler Urine Protein Urine Glucose (UA) Urine Ketones Urine Blood Urine Nitrate Urine Bilirubin Urine Urobilinogen Ur Leukocyte Esterase Urine WBC Ur Squamous Epith Cells Urine Bacteria 07/24/18 07/24/18 07/24/18 21:11 19:45 16:46 WBC RBC Hgb Hct MCV MCH MCHC RDW Plt Count MPV Neut % (Auto) Lymph % (Auto) Hamlin % (Auto) Eos % (Auto) Baso % (Auto) Neut # (Auto) Lymph # (Auto) Hamlin # (Auto) Eos # (Auto) Baso # (Auto) Sodium Potassium Chloride Carbon Dioxide Anion Gap BUN Creatinine Estimated Creat Clear Estimated GFR Est GFR ( Amer) Glucose POC Glucose 85 Lactate 2.0 2.1 H Calcium Total Bilirubin AST ALT Alkaline Phosphatase Total Protein Albumin Globulin Albumin/Globulin Ratio TSH Urine Color Urine Appearance Urine pH Ur Specific Butler Urine Protein Urine Glucose (UA) Urine Ketones Urine Blood Urine Nitrate Urine Bilirubin Urine Urobilinogen Ur Leukocyte Esterase Urine WBC Ur Squamous Epith Cells Urine Bacteria 07/24/18 07/24/18 07/24/18 16:21 12:00 12:00 WBC RBC Hgb Hct MCV MCH MCHC RDW Plt Count MPV Neut % (Auto) Lymph % (Auto) Hamlin % (Auto) Eos % (Auto) Baso % (Auto) Neut # (Auto) Lymph # (Auto) Hamlin # (Auto) Eos # (Auto) Baso # (Auto) Sodium 143 Potassium 4.5 Chloride 103 Carbon Dioxide 32 Anion Gap 12.5 BUN 22 H Creatinine 1.39 H Estimated Creat Clear 43 Estimated GFR 36 L Est GFR ( Amer) 43 L Glucose 52 L POC Glucose 117 H Lactate 2.7 H Calcium 8.5 Total Bilirubin 0.3 AST 12 L ALT 17 Alkaline Phosphatase 69 Total Protein 6.3 L Albumin 2.7 L Globulin 3.6 H Albumin/Globulin Ratio 0.8 L TSH 4.15 H D Urine Color Urine Appearance Urine pH Ur Specific Butler Urine Protein Urine Glucose (UA) Urine Ketones Urine Blood Urine Nitrate Urine Bilirubin Urine Urobilinogen Ur Leukocyte Esterase Urine WBC Ur Squamous Epith Cells Urine Bacteria 07/24/18 07/24/18 12:00 11:30 WBC 6.4 RBC 3.60 L Hgb 8.6 L Hct 29.1 L MCV 80.9 L MCH 24.0 L MCHC 29.6 L RDW 16.1 Plt Count 269 MPV 9.1 Neut % (Auto) 75.2 Lymph % (Auto) 18.0 Hamlin % (Auto) 5.5 Eos % (Auto) 0.9 Baso % (Auto) 0.3 Neut # (Auto) 4.8 Lymph # (Auto) 1.2 Hamlin # (Auto) 0.4 Eos # (Auto) 0.1 Baso # (Auto) 0.0 Sodium Potassium Chloride Carbon Dioxide Anion Gap BUN Creatinine Estimated Creat Clear Estimated GFR Est GFR ( Amer) Glucose POC Glucose Lactate Calcium Total Bilirubin AST ALT Alkaline Phosphatase Total Protein Albumin Globulin Albumin/Globulin Ratio TSH Urine Color Yellow Urine Appearance Clear Urine pH 6.0 Ur Specific Butler <= 1.005 Urine Protein Negative Urine Glucose (UA) Negative Urine Ketones Negative Urine Blood Negative Urine Nitrate Negative Urine Bilirubin Negative Urine Urobilinogen 0.2 Ur Leukocyte Esterase 2+ A Urine WBC 3-5 Ur Squamous Epith Cells 3-5 Urine Bacteria Trace DS: Diagnosis - Discharge Diagnosis (1) Altered mental status Status: Acute (2) Reaction, drug, adverse Status: Acute (3) Hypoglycemia Status: Acute Discharge Plan - Patient Discharge Instructions ACTIVITY: Continue current activity DIET: continue same diet Patient Instructions: DI for Altered Mental Status - Follow up Plan Disposition: [facility] Home Medications: Home Medications Medication Instructions Recorded Confirmed Type acetaminophen 500 mg capsule 500 mg PO Q6H PRN 03/19/17 07/24/18 History aspirin 81 mg tablet,delayed 81 mg PO DAILY 03/19/17 07/24/18 History release bisoprolol fumarate 5 mg tablet 5 mg PO DAILY 10 Days #10 03/19/17 07/24/18 History cholecalciferol (vitamin D3) 1,000 1,000 unit PO DAILY 03/19/17 07/24/18 History unit capsule fluticasone propionate 50 1 spray INTRANASAL BID 30 Days #16 03/19/17 07/24/18 History mcg/actuation nasal spray,suspension furosemide 20 mg tablet 20 mg PO DAILY 10 Days #4 03/19/17 07/24/18 History insulin aspart (U-100) 100 unit/mL 0 unit SUB-Q DAILY 8 Days #3 03/19/17 07/24/18 History (3 mL) subcutaneous pen insulin detemir (U-100) 100 12 unit SUB-Q DAILY 10 Days #6 03/19/17 07/24/18 History unit/mL (3 mL) subcutaneous pen levothyroxine 50 mcg tablet 50 mcg PO DAILY 10 Days #10 03/19/17 07/24/18 History metformin 1,000 mg tablet 1,000 mg PO BID 10 Days #20 03/19/17 07/24/18 History omeprazole 20 mg capsule,delayed 20 mg PO HS 10 Days #10 03/19/17 07/24/18 History release pregabalin 75 mg capsule 75 mg PO BID 10 Days #20 03/19/17 07/24/18 History sennosides 25 mg tablet 2 tab PO DAILYP PRN 03/19/17 07/24/18 History sitagliptin 50 mg tablet 50 mg PO DAILY 10 Days #10 03/19/17 07/24/18 History spironolactone 25 mg tablet 25 mg PO DAILY 10 Days #10 03/19/17 07/24/18 History Bisacodyl [Bisacodyl 10mg Supp] 10 mg RC DAILYP PRN 09/02/17 07/24/18 History Loratadine [Claritin 10mg Tablet] 10 mg PO DAILY 09/02/17 07/24/18 History Menthol/Zinc Oxide [Risamine 113 gm TP Q8HP PRN 09/02/17 07/24/18 History Ointment] Polyethylene Glycol 3350 [Miralax 17 gm PO DAILY 09/02/17 07/24/18 History 17gm Packet] Quetiapine Fumarate [Seroquel 25mg 25 mg PO TID 07/24/18 07/24/18 History tablet] Prescriptions/Medication Reconciliation: Continued omeprazole 20 mg capsule,delayed release 20 mg PO HS 10 Days #10 spironolactone 25 mg tablet 25 mg PO DAILY 10 Days #10 bisoprolol fumarate 5 mg tablet 5 mg PO DAILY 10 Days #10 pregabalin 75 mg capsule 75 mg PO BID 10 Days #20 metformin 1,000 mg tablet 1,000 mg PO BID 10 Days #20 levothyroxine 50 mcg tablet 50 mcg PO DAILY 10 Days #10 fluticasone propionate 50 mcg/actuation nasal spray,suspension 1 spray INTRANASAL BID 30 Days #16 aspirin 81 mg tablet,delayed release 81 mg PO DAILY cholecalciferol (vitamin D3) 1,000 unit capsule 1,000 unit PO DAILY insulin detemir (U-100) 100 unit/mL (3 mL) subcutaneous pen 12 unit SUB-Q DAILY 10 Days #6 insulin aspart (U-100) 100 unit/mL (3 mL) subcutaneous pen 0 unit SUB-Q DAILY 8 Days #3 sennosides 25 mg tablet 2 tab PO DAILYP PRN PRN Reason: Constipation furosemide 20 mg tablet 20 mg PO DAILY 10 Days #4 sitagliptin 50 mg tablet 50 mg PO DAILY 10 Days #10 Polyethylene Glycol 3350 [Miralax 17gm Packet] 17 gm PO DAILY Bisacodyl [Bisacodyl 10mg Supp] 10 mg RC DAILYP PRN PRN Reason: Constipation Loratadine [Claritin 10mg Tablet] 10 mg PO DAILY Menthol/Zinc Oxide [Risamine Ointment] 113 gm TP Q8HP PRN PRN Reason: Skin Irritation Discontinued Quetiapine Fumarate [Seroquel 25mg tablet] 25 mg PO TID No Action acetaminophen 500 mg capsule 500 mg PO Q6H PRN PRN Reason: pain
--- NOTE | 2018-07-25 11:07 | Pharmacy Consult Notes ---
[facility] Pharmacy VTE Monitoring - Patient Demographics Admission date: 07/25/18 Report Date: 07/25/18 Time: 11:07 Allergies/Adverse Reactions: Patient Allergies meperidine [MEPERIDINE] Allergy (Mild, Verified 03/19/17 11:03) morphine [MORPHINE] Allergy (Mild, Verified 03/19/17 11:03) promethazine [PROMETHAZINE] Allergy (Mild, Verified 03/19/17 11:03) Height: 1.6 m Weight: 78.982 kg Patient Problems: Current Active Problems (Updated 07/25/18 @ 08:22 by Kevin Molina MD) Altered mental status (Acute) Reaction, drug, adverse (Acute) Hypoglycemia (Acute) - VTE Risk Labs: VTE Related Lab Results Hgb 9.0 g/dL (12.2-16.2) L 07/25/18 06:45 Hct 30.4 % (37.0-47.0) L 07/25/18 06:45 Plt Count 275 K/mm3 (142-424) 07/25/18 06:45 BUN 19 mg/dL (7-18) H 07/25/18 06:45 Creatinine 1.20 mg/dL (0.55-1.02) H 07/25/18 06:45 Estimated Creat Clear 41 mL/min (50-200) 07/25/18 06:45 VTE Score: 6 VTE Risk Level: Moderate Risk - Prophylaxis Types of VTE Prophylaxis: TEDS Knee High (HAILEE HOSE ORDERED) Location of Applied Device: Bilateral Lower Extremeties
== END 2018-07-25 13:11 ==
LOC: ER 10:37 → 2ND 10:37
PROVIDERS: ADMIT Family Medicine; ATTEND Family Medicine
DX: R41.82 Altered mental status, unspecified; I10 Essential (primary) hypertension; Z79.899 Other long term (current) drug therapy; E11.649 Type 2 diabetes mellitus with hypoglycemia without coma; Z83.3 Family history of diabetes mellitus; Z95.0 Presence of cardiac pacemaker; Z79.82 Long term (current) use of aspirin; Z87.440 Personal history of urinary (tract) infections; Z79.84 Long term (current) use of oral hypoglycemic drugs; R41.0 Disorientation, unspecified; Z82.49 Family history of ischemic heart disease and other diseases of the circulatory system; Z79.4 Long term (current) use of insulin; E78.5 Hyperlipidemia, unspecified; T43.595A Adverse effect of other antipsychotics and neuroleptics, initial encounter; E11.9 Type 2 diabetes mellitus without complications
CPT/HCPCS: 36415; 70450; 71010; 71045; 80048; 80053; 81001; 82962; 83605; 84443; 85025; 87040; 87086; 93005; 96365; 96375; 99284; G0378